=== PATIENT | female | born 1945 | race Caucasian/White ===

== ENCOUNTER 2022-05-20 09:43 | Emergency (ER) | payer OTHER, MEDICARE ==
[2022-05-20 09:54] VITALS: BMI 22.1
[2022-05-20] MEDS ORDERED: MAG HYDROX/AL HYDROX/SIMETH 30 ML UNIT-DOSE CUP PO ONE (10:33)
[2022-05-20] MEDS ORDERED: FAMOTIDINE 20 MG/50 ML IVPB 20 MG/50 ML MG IVPB ONE ×2 (10:33→11:11)
[2022-05-20] MEDS ORDERED: ACETAMINOPHEN 1000 MG/100 ML BAG IVPB ONE (10:34)
[2022-05-20] MEDS ORDERED: MAG HYDROX/AL HYDROX/SIMETH 30 ML UNIT-DOSE CUP ONE (11:11)
[2022-05-20] MEDS ORDERED: ACETAMINOPHEN INJECTION 100 ML IVPB ONE (11:11)
[2022-05-20 11:51] LABS: BASO % 0.5 % (0-2.0); EOS % 0.6 % (0-4.5); HEMATOCRIT 42.6 % (32.4-45.2); HEMOGLOBIN 14.2 GM/dL (10.7-15.3); LYMPH % 6.3 % (8-40); MCH 29.8 pg (25.7-33.7); MCHC 33.4 g/dl (32.0-36.0); MEAN CELL VOLUME 89.2 fl (80-96); MEAN PLT VOLUME 11.5 fl (7.5-11.1); MONO % 3.9 % (3.8-10.2); NEUT % 88.7 % (42.8-82.8); RBC 4.77 M/mm3 (3.60-5.2); WHITE BLOOD COUNT 7.5 K/mm3 (4.0-10.0)
[2022-05-20 11:54] LABS: INR 1.04 (0.83-1.09)
[2022-05-20 11:57] LABS: ACTIVATED PTT 28.9 SECONDS (25.2-36.5)
[2022-05-20 11:59] LABS: PLATELET COUNT 52 10^3/uL (134-434)
[2022-05-20 12:11] LABS: CHLORIDE 108 mmol/L (98-107); SODIUM 144 mmol/L (136-145)
[2022-05-20 12:13] LABS: CALCIUM 8.1 mg/dL (8.5-10.1)
[2022-05-20 12:14] LABS: ALBUMIN 3.6 g/dl (3.4-5.0); ANION GAP 6 MMOL/L (8-16); CO2 30 mmol/L (21-32); GLUCOSE,RANDOM 95 mg/dL (74-106); MAGNESIUM 2.6 mg/dL (1.8-2.4)
[2022-05-20 12:17] LABS: CREATININE 1.1 mg/dL (0.55-1.3); SGOT/AST 27 U/L (15-37); SGPT/ALT 23 U/L (13-61)
[2022-05-20 12:18] LABS: BILIRUBIN,TOTAL 0.5 mg/dL (0.2-1)
[2022-05-20 12:19] LABS: ALK PHOS 46 U/L (45-117)
[2022-05-20] MEDS ORDERED: ASPIRIN 325 MG TABLET PO ONE (12:23)
[2022-05-20 12:57] VITALS: PULSE 60
[2022-05-20] MEDS ORDERED: ASPIRIN 325 MG TABLET ONE (13:51)
[2022-05-20] MEDS ORDERED: HEPARIN NA (PORCINE) 5,000 UNITS/ML 1ML VIAL IVPUSH PRN ×2 (13:54)
[2022-05-20] MEDS ORDERED: HEPARIN NA (PORCINE) 5,000 UNITS/ML 1ML VIAL IVPUSH ONE (13:54)
[2022-05-20] MEDS ORDERED: HEPARIN SOD,PORK IN 0.45% NACL 25,000 UNIT/500 ML INFUS.BAG IVPB SCH (14:00)
[2022-05-20] MEDS ORDERED: HEPARIN NA (PORCINE) 5,000 UNITS/ML 1ML VIAL ONE (14:18)
[2022-05-20 14:47] VITALS: BP 145/61; TEMP 98.1
== END 2022-05-20 14:55 | disposition short-term general hospital (02) ==
LOC: JER 09:43
PROC: 3E0333Z Introduction of Anti-inflammatory into Peripheral Vein, Percutaneous Approach (ICD-10-PCS; principal; 2022-05-20)
PROC: 3E033GC Introduction of Other Therapeutic Substance into Peripheral Vein, Percutaneous Approach (ICD-10-PCS; 2022-05-20)
PROC: 3E033GC Introduction of Other Therapeutic Substance into Peripheral Vein, Percutaneous Approach (ICD-10-PCS; 2022-05-20)
PROC: 3E033GC Introduction of Other Therapeutic Substance into Peripheral Vein, Percutaneous Approach (ICD-10-PCS; 2022-05-20)
PROC: 3E033GC Introduction of Other Therapeutic Substance into Peripheral Vein, Percutaneous Approach (ICD-10-PCS; 2022-05-20)
DX: R07.9 Chest pain, unspecified (principal); M54.2 Cervicalgia
CPT/HCPCS: 36415; 71045-TC-FY; 80053; 83690; 83735; 84484; 85025; 85379; 85610; 85730; 93005; 93010; 99285-25; C9803-CS; J1644; U0003; U0005